=== PATIENT | male | born 1940 | race Two or more races ===

== ENCOUNTER 2017-05-24 18:30 | Emergency (ER) | payer MEDICARE, BC ==
[~2017-05-24] VITALS: Ht 170.2 cm; Wt 70.8 kg
--- NOTE | 2017-05-24 18:40 | NUR ---
BBRA 78 FROM [employer] FOR NEAR SYNCOPAL EPISODE, DENIES LOC AND FALL, RH=[id number] IN THE FIELD. RR IS EVEN AND UNLABORED WITH NAD NOTED. SKIN IS WARM AND DRY. PLACED ON MONITOR. WILL CONTINUOUSLY MONITOR THE PATIENT. AWAITING MD FOR EVAL. NANCY LAC [employer].
[2017-05-24] MEDS ORDERED: ONDANSETRON HCL/PF 4 MG/2 ML VIAL ONE (18:43)
[2017-05-24] MEDS: ONDANSETRON HCL/PF 4 MG/2 ML VIAL IVP ONE (18:47)
[2017-05-24] MEDS: IV NS 0.9% 500 ML BAG IV ONE (18:47)
--- NOTE | 2017-05-24 18:50 | NUR ---
PT WAS TAKEN TO CT
--- NOTE | 2017-05-24 19:07 | NUR ---
REPORT GIVEN TO NURSE MONTERO FOR [facility]
[2017-05-24 19:08] LABS: BASOPHILS # (AUTO) 0.1 /CMM (0.0-0.2); BASOPHILS % (AUTO) 1.2 % (0.0-2.0); EOSINOPHILS # (AUTO) 0.3 /CMM (0.0-0.7); EOSINOPHILS % (AUTO) 4.7 % (0.0-6.0); HEMATOCRIT 37 % (39-51); LYMPHOCYTES # (AUTO) 2.6 /CMM (0.8-4.8); LYMPHOCYTES % (AUTO) 49.9 % (20.0-44.0); MEAN CORPUSCULAR HEMOGLOBIN 29 PG (26.0-33.0); MEAN CORPUSCULAR HGB CONC 35 g/dl (31.0-36.0); MEAN CORPUSCULAR VOLUME 84 fL (80-96); MONOCYTES # (AUTO) 0.3 /CMM (0.1-1.30); MONOCYTES % (AUTO) 4.8 % (2.0-12.0); NEUTROPHILS # (AUTO) 2.2 /CMM (1.8-8.9); NEUTROPHILS % (AUTO) 39.4 % (43.0-81.0); PLATELET COUNT (AUTO) 170 /CMM (150-450); RDW COEFFICIENT OF VARIATION 13.9 (11.5-15.0); RED BLOOD CELL COUNT(AUTO) 4.42 MIL/uL (4.5-6.0); WHITE BLOOD COUNT (AUTO) 5.5 K/uL (4.3-11.0)
--- NOTE | 2017-05-24 19:14 | NUR ---
PT APPEARS TO BE RESTING COMFORTABLY WITH NO C/O PAIN. PT IS ON THE MONITOR AND CONTINUOUS PULSE OX. PT'S VSS. PT'S FAMILY IS AT THE BEDSIDE. PT REC'D A WARM BLANKET AND WILL CONTINUE TO BE MONITORED.
[2017-05-24 19:18] LABS: CALCIUM, SERUM 9.4 mg/dL (8.5-10.1); CARBON DIOXIDE 25 mmol/L (21-32); CHLORIDE 105 mmol/L (98-107); CREATININE 1.2 mg/dL (0.6-1.3); GLUCOSE 117 mg/dL (74-106); POTASSIUM 3.2 mmol/L (3.5-5.1); SODIUM SERUM 140 mmol/L (136-145); UREA NITROGEN, BLOOD 14 mg/dL (7-18)
[2017-05-24 19:24] LABS: ALANINE AMINOTRANSFERASE 35 U/L (12-78); ALBUMIN 3.6 g/dL (3.4-5.0); ALKALINE PHOSPHATASE 120 U/L (46-116); ASPARTATE AMINOTRANSFERASE 47 U/L (15-37); BILIRUBIN,DIRECT 0.1 mg/dL (0.0-0.2); BILIRUBIN,TOTAL 0.5 mg/dL (0.2-1.0); LIPASE 158 U/L (73-393); TOTAL PROTEIN, SERUM 6.7 g/dL (6.4-8.2)
[2017-05-24 19:26] LABS: TROPONIN I < 0.017 ng/mL (0.00-0.056)
--- NOTE | 2017-05-24 19:29 | NUR ---
DR. CRISTOBAL IS AT THE BEDSIDE SPEAKING TO THE PT.
[2017-05-24 20:00] VITALS: BP 148/79
== END 2017-05-24 19:58 | disposition home or self-care (01) ==
LOC: ER 18:36
DX: R11.2 Nausea with vomiting, unspecified (principal); R55 Syncope and collapse
CPT/HCPCS: 36415; 70450; 71010; 80048; 80076; 83690; 84484; 85025; 93005; 96374; 99285; A4606; J2405; Z7610